=== PATIENT | female | born 1970 | race African-American/Black ===

== ENCOUNTER 2017-02-08 17:11 | Emergency (ER) | payer MEDICAID, OTHER ==
[~2017-02-08] VITALS: Ht 162.6 cm; Wt 67.0 kg
[~2017-02-08 17:11] MED LIST: LORA1TAB PO; QUET50TA11 PO
[2017-02-08] MEDS ORDERED: KETOROLAC 60MG/2ML VIAL IM ONE (19:30)
[2017-02-08 20:10] VITALS: BP 98/64
== END 2017-02-08 20:18 | disposition home or self-care (01) ==
LOC: ER 19:12
DX: M54.16 Radiculopathy, lumbar region (principal); F41.9 Anxiety disorder, unspecified; Z98.890 Other specified postprocedural states
CPT/HCPCS: 36415; 85379; 99283; J1885; Z7610

== ENCOUNTER 2017-04-13 20:27 | Emergency (ER) | payer OTHER ==
[~2017-04-13] VITALS: Ht 162.6 cm; Wt 67.0 kg
[2017-04-14] MEDS ORDERED: LORAZEPAM 2MG/ML CPJ IV ONE (00:30)
[2017-04-14 00:39] LABS: BASOPHILS % 0.7 % (0.0-2.0); EOSINOPHILS % 1.2 % (0.0-5.0); HEMATOCRIT. 35.3 % (36.0-48.0); HEMOGLOBIN. 11.7 g/dL (12.0-16.0); MEAN CORPUSCULAR HEMOGLOBIN 24.6 pg (28.0-32.0); MEAN CORPUSCULAR VOLUME 74.4 fL (81.0-99.0); MEAN PLATELET VOLUME 8.4 fl (7.4-10.4); NEUTROPHILS % 40.1 % (40.0-76.0); PLATELET 210 x1000/uL (130-400); RED BLOOD CELL COUNT 4.74 mill/uL (4.2-5.4); RED CELL DISTRIBUTION WIDTH 14.6 % (11.6-14.6)
[2017-04-14 00:45] LABS: CHLORIDE 109 mEq/L (98-107)
[2017-04-14 00:51] LABS: CARBON DIOXIDE 22 mEq/L (21-32)
[2017-04-14 01:48] VITALS: BP 107/66
== END 2017-04-14 01:54 | disposition home or self-care (01) ==
LOC: ER 20:27
DX: F41.9 Anxiety disorder, unspecified (principal); R42 Dizziness and giddiness
CPT/HCPCS: 36415; 80048; 85025; 96374; 99284; J2060; Z7610

== ENCOUNTER 2017-07-13 21:07 | Emergency (ER) | payer OTHER ==
[~2017-07-13] VITALS: Ht 162.6 cm; Wt 74.0 kg
[~2017-07-13 21:07] MED LIST changes: +QUET50TA PO; -QUET50TA11 PO
[2017-07-14 02:30] VITALS: BP 110/73
== END 2017-07-14 02:45 | disposition home or self-care (01) ==
LOC: ER 21:07
DX: J20.9 Acute bronchitis, unspecified (principal); R21 Rash and other nonspecific skin eruption
CPT/HCPCS: 99283